=== PATIENT | male | born 1995 | race Caucasian/White ===

== ENCOUNTER 2020-10-21 02:04 | Emergency (ER) | payer BC, SELFPAY ==
[2020-10-21 02:10] VITALS: BP 196/77; PULSE 93; RESP 20; TEMP 36.7; O2SAT 99
[2020-10-21] MEDS: diazePAM INJ (*CRX) 10 MG/2 ML SYRINGE 5 MG IM (02:29)
[2020-10-21 02:56] VITALS: BP 159/86; PULSE 95; RESP 18; O2SAT 99
--- NOTE | 2020-10-21 03:35 | ED.BACK ---
HPI - Back Pain/Injury General Chief Complaint: Back Pain/Injury Stated Complaint: muscle spasms lower back Time Seen by Provider: 10/21/20 02:06 Source: RN notes reviewed History of Present Illness HPI Narrative: Patient presents to emergency department from home for low back pain. Patient states that he has pain in the bilateral lower back rating to the bilateral legs states that he was pain today and was reaching for an object when he felt a twinge in his back he denies any direct trauma or injury. States he has been using ice on the area as well as taking ibuprofen with last dose at midnight he states he did hurt his back approximately 1 year ago and he is lifting something at [employer] and this feels similar he denies any fevers or chills abdominal pain bowel or bladder incontinence. He does note tingling in his bilateral legs but notes no weakness is able to walk Review of Systems Review of Systems: Narrative: Gen.: Denies fevers or chills ENT: Denies congestion Respiratory: Denies shortness of breath or cough CV: Denies chest pain or palpitations GI: Denies abdominal pain nausea, emesis or diarrhea denies bowel or bladder incontinence Musculoskeletal: See HPI Neuro: Denies weakness or numbness Skin: Denies rash Except as documented, all other systems reviewed and negative [facility] Past Medical History Medical History (Updated 10/21/20 @ 03:38 by John Poole DO) Patient denies significant medical history Social History Social History (Updated 10/21/20 @ 03:36 by John Poole DO) Smoking status: Never smoker Exam Narrative: Exam Narrative: APPEARANCE: No acute distress, nontoxic, resting in bed Eyes: EOMI HEENT: Normocephalic, atraumatic, CV: Regular rate and rhythm without murmur RESPIRATORY: No respiratory distress. Clear to auscultation bilaterally. Abdomen: Soft and nontender, no rebound or guarding MUSCULOSKELETAl: Moves all extremities, no clubbing cyanosis or edema Back: No midline lumbar tenderness to palpation or step-off, tender to palpation over bilateral paravertebral muscles L3-5 , pain increased with forward flexion NEURO: Awake and alert. Following commands, speech normal, no focal deficits, muscle strength 5 out of 5 bilateral lower extremities, bilateral patellar reflex 2+, pinprick sensation equal in the bilateral lower extremities SKIN:: Warm, dry. Normal Color no rash or lesions Course Course Emergency Course: Patient ambulated on his own back to the room Patient states feeling much better following Valium. States tingling in his legs has resolved Discussed with patient results of workup and diagnosis. Discussed need for follow-up with primary care, proper use of medication, and reasons to return to the emergency department. Patient understands and agrees to current treatment plan Vital Signs Vital signs: Vital Signs Temperature 98.1 F 10/21/20 02:10 Pulse Rate 93 10/21/20 02:10 Respiratory Rate 20 10/21/20 02:10 Blood Pressure 196/77 H 10/21/20 02:10 Pulse Oximetry 99 10/21/20 02:10 Temperature 98.1 F 10/21/20 02:10 Pulse Rate 95 10/21/20 02:56 Respiratory Rate 18 10/21/20 02:56 Blood Pressure 159/86 H 10/21/20 02:56 Pulse Oximetry 99 10/21/20 02:56 MDM - Back Pain/Injury MDM Narrative Medical decision making narrative: Patient?s pain is positional and localized to back without signs of cord compression or cauda equina. Normal nuerologic exams. No fever noted and no significant risk factors for osteomyelitis or spinal epidural abscess. No symptoms or signs to suggest pain is referred from abdominal or source. There are no pulsatile masses to exam. Patient ambulates with a steady gait and is felt to be up reasonable candidate for continued outpatient management Discharge Plan Discharge Clinical Impression: Low back pain Patient Disposition: Home, Self-Care Condition: Stable Instructions: Antibiotic Form, Acute Low Back Pain (E
[2020-10-21 03:48] VITALS: BP 155/78; PULSE 90; RESP 18; O2SAT 100
== END 2020-10-21 03:50 | disposition home or self-care (01) ==
PROVIDERS: Emergency Provider Emergency Medicine
DX: M54.5 Low back pain (principal)
CPT/HCPCS: 96372; 99283; J3360